=== PATIENT | male | born 1955 | race Caucasian/White ===

== ENCOUNTER 2023-07-21 07:25 | Outpatient (CLI) | payer MEDICARE | END 2023-07-21 07:26 | disposition home or self-care (01) | LOC: CSHRAD 07:25 | PROVIDERS: ATTEND Nurse Practitioner Family | DX: R13.19 Other dysphagia (principal); K22.2 Esophageal obstruction; K44.9 Diaphragmatic hernia without obstruction or gangrene | CPT/HCPCS: 74220 ==

== ENCOUNTER 2024-02-14 09:09 | Outpatient (CLI) | payer MEDICARE ==
[~2024-02-14 09:09] MED LIST: Iopamidol 300 61% 100 ML VIAL FS ONE
== END 2024-02-14 09:10 | disposition home or self-care (01) ==
LOC: CSHCT 09:09
PROVIDERS: ATTEND Internal Medicine Hematology & Oncology
DX: C18.5 Malignant neoplasm of splenic flexure (principal); R91.8 Other nonspecific abnormal finding of lung field; J90 Pleural effusion, not elsewhere classified; K59.00 Constipation, unspecified; K57.30 Diverticulosis of large intestine without perforation or abscess without bleeding; Z98.890 Other specified postprocedural states; Z90.81 Acquired absence of spleen
CPT/HCPCS: 71260; 74177; 82565

== ENCOUNTER 2025-03-22 08:19 | Outpatient (CLI) | payer MEDICARE ==
[2025-03-22 11:22] LABS: Estimated GFR - POC 95.0
== END 2025-03-22 08:20 | disposition home or self-care (01) ==
LOC: CSHCT 08:19
DX: C18.5 Malignant neoplasm of splenic flexure (principal); R91.8 Other nonspecific abnormal finding of lung field
CPT/HCPCS: 36415; 71260; 82565